=== PATIENT | female | born 1985 | race Caucasian/White ===

== ENCOUNTER 2021-09-22 16:21 | Emergency (ER) | payer BC ==
[~2021-09-22] VITALS: Ht 167.6 cm; Wt 74.8 kg
[2021-09-22 17:01] LABS: ABSOLUTE NEUTROPHILS 5.1 thou/uL (1.4-8.2); BASOPHILS 0.5 % (0.0-2.0); EOSINOPHILS 3.8 % (0.0-3.0); HEMATOCRIT 42.2 % (37.0-47.0); HEMOGLOBIN 14.4 gm/dL (12.0-15.0); LYMPHOCYTES 29.6 % (24.0-44.0); MCH 30.1 pg (26.0-34.0); MCHC 34.2 g/dL (28.0-37.0); PLATELET COUNT 323 thou/uL (150-400); POLYS 57.1 % (36.0-66.0); RDW 12.9 % (10.5-14.5)
[2021-09-22 17:13] LABS: CALCIUM 9.1 mg/dL (8.5-10.1); CREATININE 0.7 mg/dL (0.6-1.0); POTASSIUM 3.5 mmol/L (3.5-5.1)
[2021-09-22 17:57] VITALS: BP 118/76
--- NOTE | 2021-09-23 15:35 | EKG ---
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
== END 2021-09-22 18:03 | disposition home or self-care (01) ==
LOC: ER 16:21
PROVIDERS: Emergency Medicine
DX: R07.89 Other chest pain (principal); Z20.822 Contact with and (suspected) exposure to COVID-19